=== PATIENT | male | born 1945 | race Caucasian/White ===

== ENCOUNTER 2016-08-26 07:11 | Day surgery (SDC) | payer MEDICARE ==
[~2016-08-26 07:11] MED LIST: AMIO200T2 PO; AMLO10TA2 PO; ASPI-630 PO; ATOR10TA60 PO; FURO20TA3 PO; IV RINGERS,LACTATED 1000ML 1,000 ML IV SCH; METF500T4 PO; METO25TA9 PO; RIVA10TA PO; VALS320T2 PO
[2016-08-26] MEDS ORDERED: RIVA20TA2 PO (07:39)
[2016-08-26] MEDS ORDERED: LIDOCAINE 1% 1 ML SYRINGE. ID PRN (08:00)
[2016-08-26] MEDS ORDERED: MIDAZOLAM HCL/PF 2 MG/2 ML VIAL. IV PRN (08:00)
[2016-08-26] MEDS ORDERED: fentaNYL PF VIAL 100 MCG/2 ML VIAL IV PRN (08:00)
[2016-08-26] MEDS ORDERED: 0.9 % SODIUM CHLORIDE 10 ML DISP.SYRIN. IV PRN (08:00)
[2016-08-26] MEDS ORDERED: LIDOCAINE 2% VISCOUS 15 ML SOLUTION. ONE (08:06)
[2016-08-26] MEDS ORDERED: BENZOCAINE ONE 20% MUCOSAL SPRAY. (08:06)
[2016-08-26] MEDS ORDERED: LIDOCAINE 2% TOPICAL JELLY 30GM TUBE. TP ONE (08:06)
[2016-08-26 08:09] LABS: HEMATOCRIT 41.5 % (39.0-53.0); HEMOGLOBIN 13.5 g/dL (13.0-17.5); RED BLOOD COUNT 4.77 x10^6/uL (4.30-5.70); RED CELL DISTRIBUTION WIDTH 15.1 % (11.5-14.5); WHITE BLOOD COUNT 6.5 x10^3/uL (4.0-11.0)
[2016-08-26] MEDS ORDERED: LIDOCAINE 2% PF Vial for OR 5 ML VIAL. ONE (08:15)
[2016-08-26] MEDS ORDERED: PROPOFOL 20 ML IV ONE (08:15)
[2016-08-26 08:20] LABS: CALCIUM 8.3 mg/dL (8.5-10.1); GFR 74.1; POTASSIUM 3.6 mmol/L (3.5-5.1)
--- NOTE | 2016-08-26 08:53 | EKG ---
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
[2016-08-26 09:45] VITALS: BP 148/75
--- NOTE | 2016-08-26 10:16 | EKG ---
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
--- NOTE | 2016-08-26 11:25 | CARD ---
APPROVED REPORT EXAM: Two-dimensional and M-mode echocardiogram with Doppler and color Doppler. INDICATION Atrial Fibrillation CHF RISK FACTORS Obesity Diabetes Reason For Test : A FIB PROCEDURE After obtaining informed consent, patient underwent transesophageal echo in the PACU. Type of Sedation : Conscious sedation Sedation was administered by ASSISTANT MERCHANDISER. Transesophageal probe was inserted and advanced into esophagus by Terry Alatorre MD. The RYAN was performed without complications. Synchronized Cardioversion acheived with 200 Joules after 1 attempt(s). Rhythm following Synchronized Cardioversion: Normal sinus rhythm Throughout the procedure, the blood pressure, pulse oximetry, cardiac rhythm, and rate were monitored . The patient tolerated the procedure without adverse effects. Recovery from conscious sedation was une ventful and vital signs were stable. LEFT VENTRICLE The left ventricle is normal size. There is mild concentric left ventricular hypertrophy. The left ve ntricular systolic function is normal and the ejection fraction is within normal range. The Ejection Fraction is 50-55%. No left ventricle thrombus noted on this study. RIGHT VENTRICLE The right ventricle is normal size. There is normal right ventricular wall thickness. The right ventr icular systolic function is normal. ATRIA The left atrium is mildly dilated. The right atrium size is normal. The interatrial septum is intact with no evidence for an atrial septal defect or patent foramen ovale as noted on 2-D or Doppler imagi ng. There is no thrombus noted in the left atrial appendage. AORTIC VALVE The aortic valve is mildly sclerotic. The aortic valve is trileaflet. Doppler and Color Flow revealed mild aortic regurgitation. There is no significant aortic valvular stenosis. MITRAL VALVE The mitral valve leaflets are thickened. There is no evidence of mitral valve prolapse. There is no m itral valve stenosis. Doppler and Color Flow revealed mild mitral regurgitation. TRICUSPID VALVE Doppler and Color Flow revealed mild tricuspid regurgitation. The pulmonary artery systolic pressure is estimated at 27 mmHg. There is no pulmonary hypertension. PULMONIC VALVE The pulmonic valve is not well visualized. GREAT VESSELS The aortic root is normal in size. The ascending aorta is normal in size. The pulmonary is not well v isualized. The IVC is normal in size and collapses >50% with inspiration. Critical Notification Critical Value: No <Conclusion> The left ventricular systolic function is normal and the ejection fraction is within normal range. Th e Ejection Fraction is 50-55%. No CHARISSA thrombus Successful CVN to SR at 200 Joules
[2016-08-29] MEDS ORDERED: fentaNYL PF VIAL 100 MCG/2 ML VIAL IV PRN (08:00)
== END 2016-08-26 09:54 | disposition home or self-care (01) ==
LOC: SURG 07:11
PROVIDERS: ATTEND Internal Medicine Cardiovascular Disease
DX: I07.1 Rheumatic tricuspid insufficiency (principal); I34.0 Nonrheumatic mitral (valve) insufficiency; I48.91 Unspecified atrial fibrillation; E11.9 Type 2 diabetes mellitus without complications; E66.9 Obesity, unspecified; Z68.44 Body mass index [BMI] 60.0-69.9, adult; E78.00 Pure hypercholesterolemia, unspecified; Z86.39 Personal history of other endocrine, nutritional and metabolic disease; Z72.89 Other problems related to lifestyle
CPT/HCPCS: 36415; 80048; 82962; 83735; 85027; 92960; 93005; 93312; 93325; 99152; 99153; J2704